=== PATIENT | female | born 1975 | race African-American/Black ===

== ENCOUNTER 2023-07-26 07:04 | Emergency (ER) | payer BC ==
[~2023-07-26] VITALS: Ht 165.1 cm; Wt 113.4 kg
[2023-07-26] MEDS ORDERED: BENICAR5 MG PO (07:21)
== END 2023-07-26 09:22 | disposition home or self-care (01) ==
LOC: ER 07:05
DX: T19.2XXA Foreign body in vulva and vagina, initial encounter (principal); W44.F9XA Other object of natural or organic material, entering into or through a natural orifice, initial encounter; Z88.0 Allergy status to penicillin